=== PATIENT | female | born 1935 | race Caucasian/White ===

== ENCOUNTER 2018-06-26 12:15 | Inpatient (IN) | payer OTHER ==
[~2018-06-26] VITALS: Ht 154.9 cm; Wt 45.4 kg
[2018-06-26] MEDS ORDERED: SYNTH PO (14:26)
[2018-06-26] MEDS ORDERED: NEXIUM 24HR20 MG PO (14:27)
[2018-06-26] MEDS ORDERED: NORVASC PO (14:27)
[2018-06-26] MEDS ORDERED: LIPITOR PO (14:27)
[2018-06-26] MEDS ORDERED: BONIVA150 MG PO (14:28)
[2018-06-26] MEDS ORDERED: METAMUCIL660 G1 PO (14:28)
[2018-07-06] MEDS ORDERED: ULTRACET PO (15:45)
== END 2018-07-06 16:21 | disposition home or self-care (01) | DRG 330 ==
LOC: MEDJ 06-30 05:51 → SURH 06-30 05:51 → O/R 06-30 05:51 → SURH 06-30 07:00 → MEDJ 07-03 11:12
PROVIDERS: ADMIT Surgery
PROC: 07TC4ZZ Resection of Pelvis Lymphatic, Percutaneous Endoscopic Approach (ICD-10-PCS; 2018-06-30)
PROC: 0DQM4ZZ Repair Descending Colon, Percutaneous Endoscopic Approach (ICD-10-PCS; 2018-06-30)
PROC: 0DJD8ZZ Inspection of Lower Intestinal Tract, Via Natural or Artificial Opening Endoscopic (ICD-10-PCS; 2018-06-30)
PROC: 0DTN4ZZ Resection of Sigmoid Colon, Percutaneous Endoscopic Approach (ICD-10-PCS; principal; 2018-06-30 07:00)
DX: D12.7 Benign neoplasm of rectosigmoid junction (principal); D62 Acute posthemorrhagic anemia; K91.71 Accidental puncture and laceration of a digestive system organ or structure during a digestive system procedure; K57.30 Diverticulosis of large intestine without perforation or abscess without bleeding; I11.0 Hypertensive heart disease with heart failure; J44.9 Chronic obstructive pulmonary disease, unspecified; E78.00 Pure hypercholesterolemia, unspecified; E03.8 Other specified hypothyroidism; D36.0 Benign neoplasm of lymph nodes

== ENCOUNTER 2020-03-17 07:00 | Day surgery (SDC) | payer OTHER ==
[~2020-03-17 07:00] MED LIST: BONIVA150 MG PO; LIPITOR PO; METAMUCIL660 G1 PO; NEXIUM 24HR20 MG PO; NORVASC PO; SYNTH PO; ULTRACET PO
== END 2020-03-17 11:55 | disposition home or self-care (01) ==
LOC: AMB-ENDOS 07:00 → CIR.AMB 12:45
PROVIDERS: ATTEND Surgery
DX: K62.89 Other specified diseases of anus and rectum (principal); Z20.828 Contact with and (suspected) exposure to other viral communicable diseases